=== PATIENT | male | born 1990 | race Caucasian/White ===

== ENCOUNTER 2019-08-27 14:21 | Inpatient (IN) | payer OTHER ==
[~2019-08-27] VITALS: Ht 172.7 cm; Wt 84.5 kg
--- NOTE | 2019-08-27 15:26 | NUR ---
MSTime: [id number] A 28 year old MALE admitted to under services of JAXON MOLINA DO. Pt. arrived via ambulatory from [place]. Chief complaint: OPIATE WITHDRAWAL. INÉS FRANCO.
--- NOTE | 2019-08-27 15:26 | NUR ---
[place] 28 year old MALE admitted to room # 504-1 for stabilization. Reports an addiction to HEROIN last used 26 hours prior to admission. Compliant with admission procedure. Patient denies any anxiety, but is unable to sit still, taps toes to floor continuously, looks about room, unable to focus eyes on nurse during interview. See assessment forms for additional information about patient status.
--- NOTE | 2019-08-27 15:29 | NUR ---
[place] STAFF MEETS [facility]. CINA=17. PATIENT IS GOING TO FOLLOW UP WITH [facility] FOR HIS AFTERCARE PLAN. HOLLAND PEDRO B.A. INSURANCE RISK ANALYST
[2019-08-27 16:00] VITALS: BP 138/66
--- NOTE | 2019-08-27 16:06 | NUR ---
ABRASION NOTED TO LEFT ELBOW. WOUND PICTURE & DOCUMENTATION OBTAINED PER POLICY.
[2019-08-27 16:10] LABS: BASO % 0.5 % (0.0-1.0); EOS # 0.1 10*3/uL (0.0-0.4); EOS % 2.4 % (1.0-4.0); LYMPH # 1.3 10*3/uL (1.3-4.4); LYMPH % 22.8 % (27.0-41.0); MEAN CELL VOLUME 87.4 fl (80.0-94.0); MEAN CORPUSCULAR HGB 28.6 pg (27.0-31.0); MEAN CORPUSCULAR HGB CONC 32.7 g/dl (33.0-37.0); MEAN PLATELET VOLUME 9.1 fl (9.6-12.3); MONO # 0.4 10*3/uL (0.1-1.0); MONO % 6.6 % (3.0-9.0); NEUT # 3.9 10*3/uL (2.3-7.9); NEUT % 67.4 % (47.0-73.0); PLATELET COUNT AUTOMATED 256 10*3/uL (130-400); RED BLOOD COUNT 4.69 10*6/uL (4.50-5.90); RED CELL DISTRI WIDTH 12.3 % (0-14.5); WHITE BLOOD COUNT 5.8 10*3/uL (4.8-10.8)
[2019-08-27 16:19] LABS: INTERNATIONAL NORM RATIO 0.9 (2.0-3.5)
[2019-08-27 16:23] LABS: ALBUMIN 3.8 gm/dl (3.1-4.5); ALKALINE PHOSPHATASE 53 U/L (45-117); BUN 6 mg/dl (7-24); CHLORIDE 108 mmol/L (98-107); CREATININE 0.84 mg/dL (0.70-1.30); POTASSIUM 4.1 mmol/L (3.5-5.1); SGOT/AST 15 IU/L (3-35); SGPT/ALT 19 U/L (12-78); SODIUM 142 mmol/L (136-145); TOTAL PROTEIN 7.5 gm/dL (6.4-8.2)
[2019-08-27 16:35] LABS: ETHYL ALCOHOL < 3.0 mg/dl (<3)
--- NOTE | 2019-08-27 16:59 | NUR ---
NICOTROL INHALER PROVIDED AT THIS TIME PER PRN ORDER FOR C/O NICOTINE WITHDRAWAL.
--- NOTE | 2019-08-27 17:10 | NUR ---
PATIENT REQUESTED PO MOTRIN, ROBAXIN, SENOKOT AND VISTARIL PER PRN ORDER FOR C/O MUSCLE ACHES, CONSTIPATION AND ANXIETY. WILL MONITOR EFFECTIVENESS.
[2019-08-27 17:33] LABS: URINE AMPHETAMINES < 1000 (1000ng/ml); URINE BARBITURATES < 200 (200ng/ml); URINE BENZODIAZEPINES < 200 (200ng/ml); URINE CANNABINOIDS (THC) > 50 (50ng/ml); URINE COCAINE < 300 (300ng/ml); URINE METHADONE < 300 (300ng/ml); URINE OPIATES < 300 (300ng/ml)
[2019-08-27 17:34] LABS: BACTERIA TRACE; BILIRUBIN NEGATIVE (NEGATIVE); BLOOD NEGATIVE (NEGATIVE); CLARITY CLOUDY (CLEAR); COLOR YELLOW (YELLOW); GLUCOSE NEGATIVE (NEGATIVE); KETONE NEGATIVE (NEGATIVE); LEUKO ESTERASE NEGATIVE (NEGATIVE); NITRITE NEGATIVE (NEGATIVE); RBC 0-2 rbc/hpf (0-2); UROBILINOGEN 0.2 E.U./dl (0.2-1.0); WBC 0-2 wbc/hpf (0-5)
[2019-08-27 17:47] LABS: URINE PHENCYCLIDINE < 25 (25ng/ml)
--- NOTE | 2019-08-27 18:10 | NUR ---
Patient resting. Responding to scheduled medications with fewer complaints of pain and anxiety.
--- NOTE | 2019-08-27 19:33 | NUR ---
CHART CHECK COMPLETE.
[2019-08-27 20:00] VITALS: BP 121/62
--- NOTE | 2019-08-27 20:29 | NUR ---
ASSUMED CARE OF PATIENT. PATIENT IS RESTING IN BED WITH EASY AND REGULAR RESPERS ON ROOM AIR. ASSESSMENT IS COMPLETE WITH NO S/S OF DISTRESS NOTED AT THIS TIME. PATIENT C/O RESTLESS LEGS AND GI UPSET AT THIS TIME. BED IS LOW, LOCKED, AND CALL LIGHT IS WITHIN REACH. WILL CONTINUE TO MONITOR, SEE INTERVENTIONS.
--- NOTE | 2019-08-27 21:05 | NUR ---
PRN MAALOX AND BENTYL GIVEN FOR GI UPSET, REQUIP FOR RESTLESS LEGS, AND VISTARIL FOR INSOMINA. PATIENT STATED "I DON'T WANT MY SUBUTEX AT ALL TONIGHT. IF I AM SLEEPING LET ME SLEEP." WILL MONITOR EFFECT OF MEDICATIONS. CALL LIGHT IS WITHIN REACH.
[2019-08-28] VITALS: BP 103/49
--- NOTE | 2019-08-28 01:45 | NUR ---
PATIENT IS SLEEPING WITH EASY AND REGULAR RESPERS ON ROOM AIR. CALL LIGHT IS WITHIN REACH.
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
--- NOTE | 2019-08-28 07:55 | NUR ---
Assessment completed. 0756 robaxin given for muscle aches 0757 requip given for restless legs 0801 bentyl given for stomach cramps
[2019-08-28 08:00] VITALS: BP 106/62
--- NOTE | 2019-08-28 08:55 | NUR ---
States that medication was effective for restless legs, stomach cramps and muscle aches.
--- NOTE | 2019-08-28 11:50 | NUR ---
Medicated with motrin 800 mg per order. Notified pt of prn orders for medications for motrin 600 mg and tylenol if he needs to notify nurse. States pain is in legs and joints. States muscles are hurting aching.
--- NOTE | 2019-08-28 13:57 | NUR ---
Medicated with robaxin, tylenol and vistaril for s/s of withdrawal including muscles aches, anxiety and restlessness.
--- NOTE | 2019-08-28 14:30 | NUR ---
States that medication given earlier somewhat effective for symptoms of withdrawal.
[2019-08-28 16:00] VITALS: BP 130/71
--- NOTE | 2019-08-28 16:19 | NUR ---
[place] STAFF IN TO SEE PATIENT. PATIENT IS GOING TO [facility] ON August POST DISCHARGE. [facility] WILL PROVIDE TRANSPORTATION. PATIENT REPORTS THAT HE WILL CONTACT WHEN HE IS DISCHARGED. PATIENT AGREES AND UNDERSTANDS HIS AFTERCARE PLAN. HOLLAND PEDRO B.A. METEOROLOGICAL TECHNICIAN
--- NOTE | 2019-08-28 20:39 | NUR ---
ASSUMED CARE OF PATIENT. PATIENT IS AAOX3 RESTING IN BED WITH EASY AND REGULAR RESPERS ON ROOM AIR. ASSESSMENT IS COMPLETE WITH NO S/S OF DISTRESS NOTED AT THIS TIME OR C/O. BED IS LOW, LOCKED, AND CALL LIGHT IS WITHIN REACH. WILL CONTINUE TO MONITOR, SEE INTERVENTION SCREEN.
--- NOTE | 2019-08-28 21:46 | NUR ---
Patient displaying withdrawal symptoms, including: irritability, anxiousness, restlessness and agitation, complicated by impulsive behavior. Patient scores a 5 on the withdrawal scale. Scheduled/PRN medications provided. Will continue to monitor medication effectiveness.
--- NOTE | 2019-08-28 22:46 | NUR ---
PRN MEDICATIONS EFFECTIVE PER PATIENT. CALL LIGHT IS WITHIN REACH.
[2019-08-29] VITALS: BP 111/53
--- NOTE | 2019-08-29 01:03 | NUR ---
PRN TRAZADONE GIVEN FOR INSOMNIA. CALL LIGHT IS WITHIN REACH.
--- NOTE | 2019-08-29 02:03 | NUR ---
PRN TRAZADONE EFFECTIVE, CALL LIGHT IS WITHIN REACH.
--- NOTE | 2019-08-29 02:25 | NUR ---
CHART CHECK COMPLETE.
--- NOTE | 2019-08-29 03:07 | NUR ---
PATIENT SLEEPING WITH EASY AND REGULAR RESPERS ON ROOM AIR. CALL LIGHT IS WITHIN REACH.
[2019-08-29 08:00] VITALS: BP 120/68
--- NOTE | 2019-08-29 08:01 | NUR ---
Medicated with motrin and robaxin and vistaril per prn order for complaints of muscle aches, and anxiety.
--- NOTE | 2019-08-29 09:00 | NUR ---
Pt states he is feeling better. Meds given earlier effective.
--- NOTE | 2019-08-29 14:12 | NUR ---
Medicated with tylenol, robaxin, and vistaril per prn order for complaints of muscles pain and aches and anxiety.
--- NOTE | 2019-08-29 15:00 | NUR ---
States that medication was effective.
[2019-08-29 16:00] VITALS: BP 124/60
--- NOTE | 2019-08-29 16:11 | NUR ---
Medicated with motrin per prn order for complaints of muscle aches.
--- NOTE | 2019-08-29 17:00 | NUR ---
States that motrin helped to relieve pain.
--- NOTE | 2019-08-29 21:08 | NUR ---
PATIENT MEDICATED WITH TRAZODONE FOR INSOMNIA, ROBAXIN FOR MUSCLE ACHES AND VISTARIL FOR ANXIETY. WILL CONTINUE TO MONITOR. CALL LIGHT IN REACH.
--- NOTE | 2019-08-29 21:16 | NUR ---
PATIENT GIVEN NICORETTE GUM PER HIS REQUEST FOR SMOKING CESSATION. HE STATED HE DOES NOT LIKE THE NICOTROL INHALER.
[2019-08-30] VITALS: BP 116/68
--- NOTE | 2019-08-30 05:25 | NUR ---
REFUSED AM LAB DRAW.
[2019-08-30 08:00] VITALS: BP 108/60
[2019-08-30] MEDS ORDERED: VITAMIN B-1100 M1 PO (08:10)
[2019-08-30] MEDS ORDERED: THERA TABLET400 MCG PO (08:10)
[2019-08-30] MEDS ORDERED: METHOCARBAMOL750 M1 PO (08:10)
[2019-08-30] MEDS ORDERED: NATURE'S BLEND F1 MG PO (08:10)
[2019-08-30] MEDS ORDERED: ATARAX,VISTARIL50 MG PO (08:10)
[2019-08-30] MEDS ORDERED: DICYCLOMINE HCL20 MG PO (08:10)
--- NOTE | 2019-08-30 09:09 | NUR ---
Discharge instructions reviewed with patient. Patient receptive and verbalizes understanding. Follow-up care arranged. Written instructions given to patient. PT DECLINED WOUND PICTURES OF LEFT ELBOW, PT STATES HE WILL MANAGE ABRASION AT HOME. PT HAS NO QUESTIONS ON DISCHARGE AT THIS TIME. [facility] WILL BE PICKING UP TODAY, PER JEANCARLOS SOMETIME AFTER 10 AM. REINALDO BERRY
--- NOTE | 2019-08-30 11:05 | NUR ---
PT DISCHARGED, [facility] PICKED PATIENT UP.
== END 2019-08-30 11:05 | DRG 773 ==
LOC: 5E 14:21
PROVIDERS: Family Medicine; ADMIT Internal Medicine
DX: F11.23 Opioid dependence with withdrawal (principal); D64.9 Anemia, unspecified; E87.8 Other disorders of electrolyte and fluid balance, not elsewhere classified; M79.18 Myalgia, other site; M25.50 Pain in unspecified joint; F17.210 Nicotine dependence, cigarettes, uncomplicated; Z90.49 Acquired absence of other specified parts of digestive tract; Z71.6 Tobacco abuse counseling